=== PATIENT | female | born 1960 | race Caucasian/White ===

== ENCOUNTER 2019-12-19 09:26 | Inpatient (IN) | payer BC ==
[~2019-12-19] VITALS: Ht 162.6 cm; Wt 70.3 kg
[2019-12-19] VITALS (15 sets, daily range): BP systolic 110–124; BP diastolic 60–75
[~2019-12-19 09:26] MED LIST: magnesium PO
[2019-12-19] MEDS ORDERED: LR 1000ml 1,000 ML IVLG SCH (10:12)
[2019-12-19] MEDS ORDERED: DiphenhydrAMINE 50mg/ml Inj IVP PRN (10:15)
[2019-12-19] MEDS ORDERED: Atropine Sulfate 0.4mg/ml inj IVP PRN (10:15)
[2019-12-19] MEDS ORDERED: Meperidine 25mg/0.5ml Inj (FOR RIGORS ONLY) IV PRN (10:15)
[2019-12-19] MEDS ORDERED: LORazepam Inj 2mg/ml 1ml IV PRN (10:15)
[2019-12-19] MEDS ORDERED: Labetalol 5mg/ml 20ml vial IV PRN (10:15)
[2019-12-19] MEDS ORDERED: Tranexamic Acid 100 ML IVPB ONE (10:15)
[2019-12-19] MEDS ORDERED: fentaNYL 100 mcg/2 mL IV PRN (10:15)
[2019-12-19] MEDS ORDERED: Metoclopramide 10mg/2ml Inj IVP PRN (10:15)
[2019-12-19] MEDS ORDERED: Midazolam 2mg/2ml Inj IVP PRN (10:15)
[2019-12-19] MEDS ORDERED: EPINEPHrine 1mg/1ml Amp ONE (10:17)
[2019-12-19] MEDS ORDERED: Bupivacaine 0.5% Inj 30 ml vial INJ ONE (10:17)
[2019-12-19] MEDS ORDERED: cloNIDine 1000mcg/10ml inj ONE (10:17)
[2019-12-19] MEDS ORDERED: NeoSporin Gu Irrig 1ml Amp IRRIG ONE (10:34)
[2019-12-19] MEDS ORDERED: Bacitracin 50000 Units Vial ONE (10:34)
--- NOTE | 2019-12-19 10:49 | Anethesia Preoperative Eval ---
Anesthesia Pre-op PMH/ROS General Date of Evaluation: Dec 19, 2019 Time of Evaluation: 11:06 Anesthesiologist: Francisco Javier ASA Score: ASA 3 Mallampati Score Class I : Soft palate, uvula, fauces, pillars visible Class II: Soft palate, uvula, fauces visible Class III: Soft palate, base of uvula visible Class IV: Only hard plate visible Mallampati Classification: Class II Surgeon: Anton Diagnosis: L Knee Pain Surgical Procedure: L Knee Total Arthroplasty Anesthesia History: none Social History: alcohol use, drug use - Tolerant Family History: no anesthesia problems Allergies: Coded Allergies: MORPHINE (Verified Allergy, Severe, rash; severe nausea and vomiting, 12/18) NSAIDS (NON-STEROIDAL ANTI-INFLAMMA (Verified Allergy, Severe, anaphylactic reaction, 12/18/19) had taken alleve; motrin in the past PENICILLINS (Verified Allergy, Severe, anaphylactic reaction, 12/18/19) CODEINE (Verified Allergy, Intermediate, rash; vomiting, 12/18/19) Medications: see eMAR Patient NPO?: Yes NPO Date: Dec 18, 2019 NPO Time: 2244 Past Medical History Cardiovascular: Reports: HTN Pulmonary: Reports: asthma - Bronchitis Hematology/Immune: Reports: other - Uterine CA PSxH Narrative: SILVIA, Uterine CA, Cervical Fusion, Lumbar Laminectomy,L Knee Sx X3, SBO Sx Anesthesia Pre-op Phys. Exam Physician Exam Last Vital Signs Date Time Temp Pulse Resp B/P (MAP) Pulse Ox O2 Delivery O2 Flow Rate FiO2 12/19/19 10:34 Room Air 12/19/19 10:29 98.0 61 18 118/75 (89) 99 Constitutional: NAD Neurologic: CN 2-12 intact Cardiovascular: RRR Respiratory: CTA Gastrointestinal: S/NT/ND Airway Exam Mallampati Score: Class II MO: full ROM: limited Teeth: intact Anesthesia Pre-op A/P Risk Assessment & Plan Assessment: ASA 3 Plan: GA, SED, Spinal Status Change Before Surgery: No Pre-Antibiotics Dru Grams Ancef IV Given Within 1 Hr of Incision: Yes Time Given: 11:31 John Mcintyre MD Dec 19, 2019 10:49
[2019-12-19] MEDS ORDERED: NS Irrig 1000ml ONE (11:00)
[2019-12-19] MEDS ORDERED: Sterile Water Irrig 1000ml IRRIG ONE (11:00)
[2019-12-19] MEDS ORDERED: LR 1000ml ONE (11:00)
[2019-12-19] MEDS ORDERED: Dexamethasone 4mg/ml vial ONE (11:02)
[2019-12-19] MEDS ORDERED: Propofol 200mg/20ml IV ONE (11:02)
[2019-12-19] MEDS ORDERED: Lidocaine 1% MPF 10mg/ml 5ml ONE (11:02)
--- NOTE | 2019-12-19 11:12 | Pre-Procedure Note/Attestation ---
Pre-Procedure Note/Attestation Complete Prior to Procedure Planned Procedure: left Procedure Narrative: left knee respalcement Indications for Procedure Pre-Operative Diagnosis: left knee arthritis Attestation I attest that I discussed the nature of the procedure; its benefits; risks and complications; and alternatives (and the risks and benefits of such alternatives ), prior to the procedure, with the patient (or the patient's legal maintenance representative). I attest that, if there was a reasonable possibility of needing a blood transfusion, the patient (or the patient's legal maintenance representative) was given the [facility] standardized written summary, pursuant to the Robert Augusto Blood Safety Act ([place] Health and Safety Code # 1645, as amended). I attest that I re-evaluated the patient just prior to the surgery and that there has been no change in the patient's H&P, except as documented below: Papito Walton MD Dec 19, 2019 11:12
--- NOTE | 2019-12-19 11:13 | Brief Operative Note ---
Immediate Post Operative Note Operative Note Pre-op Diagnosis: left knee arthritis Procedure: left knee repalcmenet Post-op Diagnosis: left knee arthritis Findings: consistent w/pre-op dx studies Surgeon: darren Anesthesia: general Specimen: yes Complications: none Condition: stable Fluids: yes Estimated Blood Loss: minimal Drains: none Implant(s) used?: Yes Papito Walton MD Dec 19, 2019 11:13
[2019-12-19] MEDS ORDERED: NS Irrig 2000ml IRRIG ONE ×2 (11:48→12:08)
--- NOTE | 2019-12-19 11:58 | Immediate Post-Op Evaluation ---
Immediate Post-Op Evalulation Immediate Post-Op Evalulation Procedure: L Knee Total Arthroplasty Date of Evaluation: Dec 19, 2019 Time of Evaluation: 13:44 IV Fluids: 800 LR Blood Products: 0 Estimated Blood Loss: 50 Urinary Output: 400 Blood Pressure Systolic: 112 Blood Pressure Diastolic: 72 Pulse Rate: 100 Respiratory Rate: 16 O2 Sat by Pulse Oximetry: 100 Temperature (Fahrenheit): 98.3 Pain Score (1-10): 1 Nausea: No Vomiting: No Patient Status: awake, reacts, patent, none Hydration Status: adequate Dru Grams Ancef IV Given Within 1 Hr of Incision: Yes Time Given: 11:31 John Mcintyre MD Dec 19, 2019 11:58
[2019-12-19] MEDS ORDERED: ePHEDrine 50mg/ml Inj ONE (12:02)
[2019-12-19] MEDS ORDERED: oxyCODONE 5mg IR tab ORAL PRN (15:00)
--- NOTE | 2019-12-19 15:00 | NUR ---
NURSE NOTES: Patient arrived to unit at 1450 via bed. Awake and oriented, no acute distress noted, reporting no pain at this time. Patient still not able to move or feel sensation from waist down, patient had spinal block during surgery. Surgical site dressing clean and dry, ice pack in place, knee immobilizer in place. IV intact, patent. Patient has no belongings, patient's at bedside updated on plan of care. Side rails upx3, bed low and locked, call light within reach.
[2019-12-19] MEDS ORDERED: MULTIVITAMINS1 EAC8 ORAL (15:11)
--- NOTE | 2019-12-19 15:25 | NUR ---
P.T Note: Order for CPM set up received for 0-60 deg. POD#0 per protocol. Sensory-motor checked on BLE and currently decreased secondary to spinal spinal block still in effect. Educated pt and re: use of CPM and its operation prior to placing the CPM. Pt and verbalized understanding. Pt tolerating 0-60 deg well. CPM to be removed OOB after 4-6 hrs of use. CPM endorsed to nursing at the end of P.T shift.
[2019-12-19] MEDS: D5 1/2NS w/KCl 20mEq 1,000 ML IV SCH (16:10)
[2019-12-19] MEDS: Clindamycin 600mg 50 ML IV SCH ×2 (17:14→22:14)
[2019-12-19] MEDS: Hydromorphone 0.5mg/0.5ml inj IVP PRN ×3 (17:27→22:14)
--- NOTE | 2019-12-19 19:05 | NUR ---
NURSE NOTES: Patient unable to tolerate CPM due to pain despite pain medication administration. CPM removed and towel roll placed behind heel for neutral position, ice packs placed and patient reports she is feeling more comfortable now.
--- NOTE | 2019-12-19 19:55 | NUR ---
HAND-OFF: Report given to Riya RIZO. Endorsed dilaudid reassessment.
--- NOTE | 2019-12-19 19:56 | NUR ---
NURSE NOTES: Received report & pt from SALLIE Jarvis. Pt lying in bed, a&ox4, in room air, family members at bedside. No s/s of acute distress & c/o 5/10 pain. Per pt, Caitlinid is working. Cates cath intact & draining yellow urine to gravity. Surgical drsg C/D/I. Pt's left foot elevated with rolled towel. IV site intact with IVF running as ordered. Bed in lowest position, call light within reach. Plan of care discussed. Will continue to monitor.
--- NOTE | 2019-12-19 21:13 | General Progress Note ---
Assessment/Plan Status Narrative S/P LEFT TOTAL KNEE ARTHROPLASTY HISTORY OF PREVIOUS DIVERTICULITIS AND COLON RESECTION PERIOPERATIVE ANTIBIOTIC PROPHYLAXIS WITH LOVENOX PT OT CPM START HER ON BOWEL REGIMEN INCENTIVE SPIROMETRY FOLLOW CBC Subjective Date patient seen: Dec 19, 2019 Time patient seen: 21:08 Allergies: Coded Allergies: MORPHINE (Verified Allergy, Severe, rash; severe nausea and vomiting, 12/18) NSAIDS (NON-STEROIDAL ANTI-INFLAMMA (Verified Allergy, Severe, anaphylactic reaction, 12/18/19) had taken alleve; motrin in the past PENICILLINS (Verified Allergy, Severe, anaphylactic reaction, 12/18/19) CODEINE (Verified Allergy, Intermediate, rash; vomiting, 12/18/19) Subjective s/p left total knee arthorplasty has been having some pain no feverno chills has a slight bleed inthe left knee wrappin able to dorsiflex the ankle bilaterally no nausea no vomiting Objective Last 24 Hour Vital Signs Date Time Temp Pulse Resp B/P (MAP) Pulse Ox O2 Delivery O2 Flow Rate FiO2 12/19/19 17:50 98.2 77 16 110/60 (77) 95 12/19/19 16:50 97.1 82 16 112/63 (79) 96 12/19/19 15:50 97.0 82 16 112/62 (79) 97 12/19/19 15:20 97.5 75 16 113/63 (80) 98 12/19/19 14:50 97.5 76 16 115/64 (81) 97 12/19/19 14:45 97.3 84 18 112/65 100 Nasal Cannula 3 12/19/19 14:30 75 16 116/63 100 Nasal Cannula 3 12/19/19 14:15 75 12 118/65 100 Nasal Cannula 3 12/19/19 14:00 81 13 121/67 100 Nasal Cannula 3 12/19/19 13:50 89 14 124/71 100 Nasal Cannula 3 12/19/19 13:40 86 16 120/67 100 Simple Mask 6 12/19/19 13:35 90 12 119/68 100 Simple Mask 6 12/19/19 13:33 97.4 102 17 112/72 100 Simple Mask 6 12/19/19 13:29 100 16 100 12/19/19 10:34 Room Air 12/19/19 10:29 98.0 61 18 118/75 (89) 99 NAD NO JVD CTA S1,S2,RRR SOFT WELL HEALED VERTICAL SCAR HYPERTROPHIC NO C/C/GILBERTO NO DRAIN Height (Feet): 5 Height (Inches): 4.00 Weight (Pounds): 155 Neck: paraspinous muscle tender David Gonzalez MD Dec 19, 2019 21:13
[2019-12-19] MEDS ORDERED: Milk of Magnesia 30ml Ud ORAL PRN (21:15)
--- NOTE | 2019-12-19 22:00 | NUR ---
NURSE NOTES: Spoke with Dr. Bender on the phone & gave updates re: pt of her pain. New orders received. Scopolamine patch x 1 NOW, increase Roxicodone from 5mg to 10MG PO Q3H PRN for mild pain. Order noted & carried out.
[2019-12-19] MEDS ORDERED: TransDerm Scop 1.5mg/72HR Patch TDERMAL ONE (22:15)
--- NOTE | 2019-12-19 22:20 | NUR ---
NURSE NOTES: Scopolamine patch applied behind left ear. Dilaudid 0.5mg IVP & Zofran 4mg IVP given. Will reassess pain. Will give oxycodone PO if pt continues to have pain after 60 minutes & pt agreed with plan of care. All needs met at this time. Will continue to monitor. Addendum: 12/19/19 at 2236 by Riya Olivo RN CORRECTION: Scopolamine patch applied behind right ear.
[2019-12-20] VITALS: BP 117/65
[2019-12-20] MEDS: oxyCODONE 5mg IR tab ORAL PRN ×3 (00:01→14:57)
[2019-12-20] MEDS: Hydromorphone 0.5mg/0.5ml inj IVP PRN ×5 (02:42→17:55)
[2019-12-20 04:00] VITALS: BP 113/61
[2019-12-20] MEDS: D5 1/2NS w/KCl 20mEq 1,000 ML IV SCH ×3 (05:16→20:00)
[2019-12-20] MEDS: Clindamycin 600mg 50 ML IV SCH ×2 (05:16→11:53)
--- NOTE | 2019-12-20 06:00 | NUR ---
NURSE NOTES: Pt's whole dressing was saturated with blood & on bed. Per pt, she felt pulsating about 2 hours ago. Removed dressing to assess for bleeding. Blood was coming out from the 2nd bottom javan of surgical site. Applied pressure & dressed with a new dressing with charge nurse. New ice pack on. Informed Dr. Grover of the above concern & Dr. Bender is also aware.
[2019-12-20] MEDS ORDERED: PCA HYDROmorphone 1mg/ml 30 ML IV PRN ×2 (07:30)
--- NOTE | 2019-12-20 07:33 | NUR ---
NURSE NOTES: Dr. Grover responded re: bleeding, "No we didn't use a tourniquet in surgery so normal drainage".
--- NOTE | 2019-12-20 07:40 | NUR ---
HAND-OFF: Report given to SALLIE Britt. Rounds done.
[2019-12-20 07:41] LABS: BASOPHILS % (AUTO) 0.5 % (0.0-2.0); LYMPHOCYTES % (AUTO) 13.2 % (20.0-45.0); MEAN CORPUSCULAR VOLUME 93 FL (80-99); MONOCYTES % (AUTO) 8.8 % (1.0-10.0); NEUTROPHILS % (AUTO) 77.5 % (45.0-75.0); PLATELET COUNT 196 K/UL (150-450); RED BLOOD COUNT 3.56 M/UL (4.20-5.40); RED CELL DISTRIBUTION WIDTH 11.5 % (11.6-14.8); WHITE BLOOD COUNT 13.2 K/UL (4.8-10.8)
[2019-12-20] MEDS ORDERED: Chloraseptic Spray 20mL Bottle ORAL PRN (07:45)
[2019-12-20] MEDS ORDERED: DiphenhydrAMINE 25mg Tab ORAL PRN (07:45)
--- NOTE | 2019-12-20 07:50 | NUR ---
NURSE NOTES: Report received from Riya RN, rounds made. Patient resting in semi-fowlers position in bed. No distress on RA. Left knee pain 7/10, will medicate as ordered. SCD to RLE on. IVF (D5 1/2 + 20 KCL at 75 ml/hr) infusing to LH, site asymptomatic. LLE dressing CDI. Neuro checks done, intact, skin cool, wiggles, pulses palpable, no NT, pedal pushes 5/5. FC draining y/cl urine to gravity, will DC after ambulates with PT. Encouraged IS, demonstrates correctly. Denies SOB, NV. Call light in reach, bed in lowest position, will continue to monitor.
[2019-12-20 08:00] VITALS: BP 98/58
[2019-12-20 08:00] LABS: ANION GAP 14 mmol/L (5-15); BLOOD UREA NITROGEN 11 mg/dL (7-18); CALCIUM 8.4 MG/DL (8.5-10.1); CARBON DIOXIDE 24 MMOL/L (21-32); CHLORIDE 103 MMOL/L (98-107); CREATININE 0.7 MG/DL (0.55-1.30); POTASSIUM 4.2 MMOL/L (3.5-5.1); SODIUM 141 MMOL/L (136-145)
[2019-12-20 08:21] LABS: INR 0.9 (0.9-1.1)
--- NOTE | 2019-12-20 08:25 | 48 Hour Post Anesthesia Eval ---
Post Anesthesia Evaluation Procedure: L Knee Total Arthroplasty Date of Evaluation: Dec 20, 2019 Time of Evaluation: 08:20 Blood Pressure Systolic: 116 0: 72 Pulse Rate: 74 Respiratory Rate: 20 Temperature (Fahrenheit): 97.6 O2 Sat by Pulse Oximetry: 98 Airway: patent Nausea: No Vomiting: No Pain Intensity: 3 Hydration Status: adequate Cardiopulmonary Status: stable Mental Status/LOC: patient returned to baseline Follow-up Care/Observations: Patient comfortable in bed, it was an episode of bleeding from surgical wound, dressing was saturated according to nursing staff, dressing was changed at present time clean and dry. Post-Anesthesia Complications: none Follow-up care needed: N/A Nas Loja MD Dec 20, 2019 08:25
[2019-12-20] MEDS ORDERED: oxyCODONE 5mg IR tab ORAL ONE (08:30)
[2019-12-20] MEDS ORDERED: oxyCODONE 5mg IR tab ORAL SCH (08:30)
[2019-12-20] MEDS ORDERED: Docusate 100mg cap ORAL SCH (09:00)
[2019-12-20] MEDS ORDERED: Enoxaparin 40mg Inj SUBQ SCH ×2 (09:00→12:30)
--- NOTE | 2019-12-20 09:24 | General Progress Note ---
Assessment/Plan Status Narrative S/P LEFT TOTAL KNEE ARTHROPLASTY PERIOPERATIVE BLOOD LOSS POSTOP PAIN PERIOPERATIVE ANTIBIOTC PROPHYALXIS PAINCONTROL PT OT DVT PROPHYALXIS CPM HAD A SLIGHT OOZING AT THE DRESSING SITE CBC IS OK ICE PACK TO BE USED Subjective Date patient seen: Dec 20, 2019 Time patient seen: 09:21 Allergies: Coded Allergies: MORPHINE (Verified Allergy, Severe, rash; severe nausea and vomiting, 12/18) NSAIDS (NON-STEROIDAL ANTI-INFLAMMA (Verified Allergy, Severe, anaphylactic reaction, 12/18/19) had taken alleve; motrin in the past PENICILLINS (Verified Allergy, Severe, anaphylactic reaction, 12/18/19) CODEINE (Verified Allergy, Intermediate, rash; vomiting, 12/18/19) Subjective has been having pain no fever no chills no chest pain no headache Objective Last 24 Hour Vital Signs Date Time Temp Pulse Resp B/P (MAP) Pulse Ox O2 Delivery O2 Flow Rate FiO2 12/20/19 08:25 74 20 98 12/20/19 05:46 98.0 12/20/19 04:00 98.0 78 18 113/61 (78) 96 12/20/19 00:00 98.3 87 18 117/65 (82) 98 12/19/19 21:00 Room Air 12/19/19 20:00 97.5 86 20 121/69 (86) 96 12/19/19 17:50 98.2 77 16 110/60 (77) 95 12/19/19 16:50 97.1 82 16 112/63 (79) 96 12/19/19 15:50 97.0 82 16 112/62 (79) 97 12/19/19 15:20 97.5 75 16 113/63 (80) 98 12/19/19 14:50 97.5 76 16 115/64 (81) 97 12/19/19 14:45 97.3 84 18 112/65 100 Nasal Cannula 3 12/19/19 14:30 75 16 116/63 100 Nasal Cannula 3 12/19/19 14:15 75 12 118/65 100 Nasal Cannula 3 12/19/19 14:00 81 13 121/67 100 Nasal Cannula 3 12/19/19 13:50 89 14 124/71 100 Nasal Cannula 3 12/19/19 13:40 86 16 120/67 100 Simple Mask 6 12/19/19 13:35 90 12 119/68 100 Simple Mask 6 12/19/19 13:33 97.4 102 17 112/72 100 Simple Mask 6 12/19/19 13:29 100 16 100 12/19/19 10:34 Room Air 12/19/19 10:29 98.0 61 18 118/75 (89) 99 Intake and Output 12/19/19 12/20/19 19:00 07:00 Intake Total 1300 ml 1275 ml Output Total 450 ml 350 ml Balance 850 ml 925 ml Intake Oral 300 ml IV Total 1300 ml 975 ml Output Urine Total 400 ml 350 ml Estimated Blood Loss 50 ml # Voids 1 Laboratory Tests 12/20/19 07:20: White Blood Count 13.2H, Red Blood Count 3.56L, Hemoglobin 11.0L, Hematocrit 33.0L, Mean Corpuscular Volume 93, Mean Corpuscular Hemoglobin 31.0, Mean Corpuscular Hemoglobin Concent 33.5, Red Cell Distribution Width 11.5L, Platelet Count 196, Mean Platelet Volume 8.1, Neutrophils (%) (Auto) 77.5H, Lymphocytes (%) (Auto) 13.2L, Monocytes (%) (Auto) 8.8, Eosinophils (%) (Auto) 0.0, Basophils (%) (Auto) 0.5, Prothrombin Time 10.0, Prothromb Time International Ratio 0.9, Sodium Level 141, Potassium Level 4.2, Chloride Level 103, Carbon Dioxide Level 24, Anion Gap 14, Blood Urea Nitrogen 11, Creatinine 0.7, Estimat Glomerular Filtration Rate > 60, Glucose Level 114H, Calcium Level 8.4L Height (Feet): 5 Height (Inches): 4.00 Weight (Pounds): 155 General Appearance: WD/WN Neck: non-tender Cardiovascular: normal peripheral pulses, normal rate, regular rhythm, no JVD Respiratory/Chest: lungs clear Abdomen: soft Extremities: other - left leg has dressing Carlos, S. MD Dec 20, 2019 09:24
[2019-12-20] MEDS ORDERED: PCA Education Pamphlet MISC ONE (09:45)
[2019-12-20] MEDS ORDERED: Rate Change PCA 1 Each MISC PRN (09:45)
[2019-12-20] MEDS: Docusate 100mg cap ORAL SCH ×2 (10:09→17:55)
--- NOTE | 2019-12-20 11:26 | NUR ---
P.T Note: late entry 0900 Spoke with attending nursing from evening shift and RN Lorenza day shift. Evening shift nurse , reported profuse bleeding on the surgical wound where dressing was reinforced. DR. Walton aware. Pt cleared for P.T evaluation and mobilization. P.T evaluation completed and and tx initiated. 100% sensory motor return to BLE's. Pt reported 8-10 L knee aggravated at rest, movement initiation and WB however agreeable to participate in P.T evaluation. Pt currently require MIN A X 1 and extended time to complete supine to/from sitting and maneuvering LLE in a out of bed, MIN A x 1 for sit to/from stand, bed to/from transitions. Pt able to ambulate and tolerate distance of 20 ft using the FWW , MIN A X 1. Left pt in chair recliner sitting comfortably with present and other necessities within reach. No significant bleeding from the surgical site. Pt will be seen BID, QD for Thera ex, ADL/functional mobility training and progressive gait training with FWW until DE. Recommend home P.T, FWW and 3 in 1 commode at DE.
[2019-12-20 12:00] VITALS: BP 142/72
--- NOTE | 2019-12-20 13:52 | NUR ---
CASE MANAGEMENT:INITIAL REVIEW 59 YR OLD FEMALE FROM HOME FOR SCHEDULED SURGERY SI;LEFT TOTAL KNEE REPLACEMENT 98.0 102 12 112/72 100% 6L SIMPLE MASK NO LABS AVAILABLE IS;IVF LR @ 10 ML/HR DEMORAL IV LABETALOL IV HYDRALAZINE IV ZOFRAN IV REGLAN IV VERSED IV ATIVAL IV ELISSA STATUS DCP;FROM HOME
--- NOTE | 2019-12-20 14:53 | NUR ---
*-* INSURANCE *-* ALL CLINICALS AND REVIEWS HAVE BEEN FAXED TO: MAIK[employer] F: [phone] Addendum: 12/21/19 at 1421 by WIL CALLEJAS JAH:NONA REF# [id number] P: [phone] X. [phone] F: [phone]
[2019-12-20 16:00] VITALS: BP 124/64
--- NOTE | 2019-12-20 16:30 | NUR ---
NURSE NOTES: Patient up with PT and RN, transfers well, good bed mobility, maintains proper body mechanics with left knee precautions. Ambulated in halls shortly, mostly ambulated in room (to bathroom), tolerated fair. LLE dressing remains CDI, no bleeding. Lovenox given as ordered. On CPM 0-40 for 30 mins, then patient reduced to 30 degrees, for another 1.5 hours. Neuros remain intact.
--- NOTE | 2019-12-20 18:30 | Consultation ---
DATE OF CONSULTATION: 12/20/2019 CONSULTING PHYSICIAN: David Bender M.D. REFERRING PHYSICIAN: Papito Walton M.D. REASON FOR CONSULTATION: Acute pain consult. HISTORY OF PRESENT ILLNESS: Dear Dr. Papito Walton, Thank you kindly for consulting me to evaluate and render an opinion as to how to proceed in the management of the patient's acute postoperative left knee pain after left total knee arthroplasty. The patient is a 59-year-old woman, who I saw at the bedside with her and the nurse RN, Riya and the charge nurse RN, Frank. I discussed the case with yourself, Dr. Walton. I spent extended time at the bedside with the patient and the nursing team to help optimize the patient's pain complaints. She complained of severe pain after her left knee surgery. I spent over 75 minutes in consultation with an additional 30 minutes in medical record review. PAST MEDICAL HISTORY: 1. Acute postoperative left knee pain, status post left total knee arthroplasty by Dr. Papito Walton in December 2019. 2. History of multiple bowel obstruction, status post surgery. REVIEW OF SYSTEMS: Per Dr. David Gonzalez. ALLERGIES: Multiple including codeine, morphine, NSAIDs, penicillin. PAST SURGICAL HISTORY: Multiple small bowel resections, knee surgery, hysterectomy, breast augmentation, cervical spine fusion surgery, abdominoplasty. SOCIAL HISTORY: The patient accompanied at the bedside by her . Her daughter is an actress and lives in [place]. The patient admits using CBD oil topically for the past four months. She also does use edible marijuana a few times per week at night time to help with sleep. MEDICATIONS: At home, multivitamins. FAMILY HISTORY: Coronary artery disease. PHYSICAL EXAMINATION: VITAL SIGNS: Age 59, height 5 feet 4 inches, weight 163 pounds, body mass index 28. Pain level 9/10 on the visual analog pain scale. Afebrile, pulse 78, respirations 18, blood pressure 113/61, oxygen saturation 96% on room air. HEENT: Normocephalic and atraumatic. CHEST: Clear to auscultation. HEART: Regular rate and rhythm. NEUROLOGIC: Alert and oriented x3. EXTREMITIES: Left knee is having drainage from the caudal incision site. The dressing has been changed and the surgeon, Dr. Papito Walton, has been aware. Moving all extremities x4. Moving all toes x10. Significant pain with range of motion. ABDOMEN: Multiple well-healed abdominal scars. Positive bowel sounds. BREASTS/GENITOURINARY: Deferred to Dr. David Gonzalez. DIAGNOSTIC TESTING: From this morning is pending. Preoperative laboratories from November 15, 2019 shows white count 6, hematocrit 42, platelets 274. INR 0.9. PTT 30. Sodium 140, potassium 4.3, chloride 106, bicarb 26, glucose 95, BUN 13, creatinine 0.8, calcium 9.3. Total protein 6.9, albumin 4.4. AST 34, ALT 44, total bilirubin 0.7, hemoglobin A1c 5.5. IMPRESSION: 1. Acute postoperative left knee pain, status post left total knee arthroplasty by Dr. Papito Walton in December 2019. 2. History of multiple bowel obstruction, status post surgery. TREATMENT RECOMMENDATIONS: This patient has multiple drug allergies and she cannot tolerate morphine. So, I trialed her on Dilaudid IV at a 0.5 mg dose. I made this dosing available every two hours. The patient seems to be tolerating this medication at the current dosing. I will continue the dosing at this 0.5 mg dose for now, we will consider increasing to 1 mg if necessary, but I like the 0.5 mg dose at this point. She has been trialed on oxycodone instant release. I started her on 5 mg. This was well tolerated despite her multiple drug allergies when taken with food. I doubled the dose to 10 mg. The patient is having a good response to oxycodone, but still states that her pain is significant. The patient was stating that she has been using CBD oil for the past several months and occasionally uses nightly marijuana a couple of times per week to help for sleep and anxiety. I suggested at bedtime dose of her Marinol here in the hospital. Since she has tolerated Dilaudid despite her allergies, I will start her on a Dilaudid OIL TANK CAR CLEANER. I spoke with the hospital pharmacist, Orly and we will start with 0.2 mg demand dose at 10-minute lockout and a 3 mg 4-hour limit. Additionally, I will continue the p.r.n. IV Dilaudid at this time. I provided the a prescription for Percocet 10/325 for outpatient usage and encouraged him to fill the prescription when his time is available. The patient know he has chronic constipation with history of small bowel obstruction. I recommend the patient resume her preoperative home laxative regimen, which includes [id number] [employer] [address] magnesium tablets. The patient states that she uses three tablets of 400 mg each. I suggested that the patient resume this dosing at bedtime once she is cleared to ambulate out of bed by the surgeon. The patient was having some postoperative surgical site bleeding. Dr. Walton will determine the best treatment. The patient was using a CPM unit already, and we will see with ambulation. Dr. Walton, has ordered for the chemical anticoagulation of Lovenox 40 mg daily. We will check with Dr. Walton before dosing the patient. The patient does list tobacco usage. Nicotine patch may be considered if such myself as an anxiolytic. Because the patient has an allergy to NSAIDs, we will avoid Toradol for now. David Bender M.D. DR: GLENYS JOB#: [id number] CC:
[2019-12-20] MEDS ORDERED: PCA shift volume MISC SCH (19:00)
--- NOTE | 2019-12-20 19:19 | NUR ---
HAND-OFF: Report given to Gfity RIZO, rounds made. Patient resting in bed, stable condition.
--- NOTE | 2019-12-20 19:20 | NUR ---
NURSE NOTES: Received report from SALLIE Britt. Patient resting in bed, no distress noted. Visitor at bedside. c/o room too warm, engineering has been already notified during this afternoon. Will obtain fan, offered to move to another room as well. Patient would like to try fan first for now. States would like snacks. Bed in low position, locked, side rails upx2, call light and FISCAL ECONOMIST pump button within reach. Patient is alert, oriented. Rates pain 6/10. Encouraged and reviewed use of FISCAL ECONOMIST pump for pain control. Patient verbalizes understanding. Will continue to monitor.
[2019-12-20 20:00] VITALS: BP_SYST 112; BP_DIAS 54; BP_DIAS 56
--- NOTE | 2019-12-20 20:00 | NUR ---
NURSE NOTES: Provided fan for room and snacks as requested. Will continue to monitor.
[2019-12-20] MEDS ORDERED: Zolpidem 5mg tab ORAL PRN (20:30)
--- NOTE | 2019-12-20 20:30 | NUR ---
NURSE NOTES: Patient would like Ambien to sleep, Dr Gonzalez was called and order obtained. Also Dr Gonzalez requests continuous O2Sat, RT was called by charge nurse to request.
[2019-12-20] MEDS: Dronabinol 2.5mg Cap ORAL SCH (20:38)
--- NOTE | 2019-12-20 20:51 | NUR ---
NURSE NOTES: RT here to place on continuous O2Sat, on RA at 98%. End CO2 37. Will continue to monitor.
--- NOTE | 2019-12-20 21:37 | NUR ---
NURSE NOTES: Patient up to bathroom using walker, with little assistance. Doing very well. No dizziness.
[2019-12-21] VITALS: BP_SYST 112; BP_SYST 120; BP_DIAS 54; BP_DIAS 64
--- NOTE | 2019-12-21 01:37 | NUR ---
NURSE NOTES: Assisted OOB to bathroom 3 times this evening. Patient using walker very well. Voiding without difficulty, quantity sufficient. Tolerating activity well, reapplied icepacks to left knee after patient is back in bed. Call light and CAGE CLERK button within reach, will continue to monitor.
--- NOTE | 2019-12-21 03:30 | NUR ---
NURSE NOTES: Patient states she feels bleeding from L knee wound. Dressing was dry on outside but upon undressing wound, noticed moderate amount of bleeding in lower third of dressing, no active bleeding at this time. Dressing changed. Icepacks reapplied on L knee for comfort. Also c/o discomfort at IV site, IV is patent. IV starts attempted x2 with help of Vein finder without success by charge nurse. Will continue to monitor.
[2019-12-21 04:00] VITALS: BP 132/60
[2019-12-21] MEDS: oxyCODONE 5mg IR tab ORAL PRN ×3 (05:50→17:06)
[2019-12-21] MEDS ORDERED: Milk of Magnesia 30ml Ud ORAL ONE (06:43)
--- NOTE | 2019-12-21 07:02 | NUR ---
NURSE NOTES: Report received from Gifty RIZO, rounds made. Patient resting in semi-fowlers position in bed. Alert, oriented x4, calm. No distress on RA. LH IV discontinued by Gifty RIZO, no active bleeding. SCHOOL BUSINESS MANAGER discontinued per Dr. Bender orders, patient updated with new orders, verbalized understanding. LLE dressing CDI. Neuros intact, left thigh/yun warm, pedal cool, wiggles, pulses palpable. Encouraged IS, demonstrates correctly. Call light in reach, bed in lowest position, will continue to monitor. Addendum: 12/21/19 at 2021 by Lorenza Gao RN Left knee pain 02/07, will medicate as ordered, see eMAR.
--- NOTE | 2019-12-21 07:09 | NUR ---
NURSE NOTES: IV DC'd per Dr Bender's order. VISITOR USE ASSISTANT DC'd with onctawanda Britt RN.
--- NOTE | 2019-12-21 07:19 | NUR ---
HAND-OFF: Report given to SALLIE Britt. Advised of new orders recently placed by Dr Bender.
--- NOTE | 2019-12-21 07:45 | Progress Note ---
DATE: 12/21/2019 ACUTE PAIN MANAGEMENT PHYSICIAN PROGRESS NOTE. MEDICATIONS: Medication administration record reviewed. Medications include Colace, Pepcid, Lovenox, Marinol, Dilaudid GROCERY CLERK CHECKING, IV fluids, Tylenol, Mylanta, Chloraseptic spray, Benadryl, milk of magnesia, oxycodone, Dilaudid, Zofran, milk of magnesia, Phenergan. LABORATORY STUDIES: From yesterday shows white count 13, hematocrit 33, platelets 200. Sodium 141, potassium 4.2, chloride 103, bicarb 24, BUN 11, creatinine 0.7, glucose 114, calcium 8.4. INR 0.9. PHYSICAL EXAMINATION: VITAL SIGNS: Within normal limits. Afebrile, pulse 89, respirations 16, blood pressure 132/60, oxygen saturation 97% on room air. I saw the patient at bedside. I discussed the case with the surgeon, Dr. Walton in detail. The hospitalist, Internal Medicine, Dr. David Gonzalez also followed the patient closely. Oozing from her surgical site has decreased. The nurses continues to change the dressing as ad-holly. The patient ambulated well with physical therapy and has been moving in and out of bed to the restroom frequently. The patient states that she is able to tolerate her IV fluids. She is having difficulty with the peripheral IV site. We used the Dilaudid GROCERY CLERK CHECKING overnight with good efficacy but in attempts to discontinue further intravenous irritation, the patient has agreed to trial off of the GROCERY CLERK CHECKING at this time. I will double the Dilaudid dosing to 1 mg which will now be used via subcutaneous route since the patient will not have IV access. Scopolamine patch remained in place for nausea prophylaxis. The patient still has been using intermittent doses of IV Zofran as a rescue antiemetic. I will switch Zofran to the intramuscular and oral routes as well as adding p.r.n. dose of intramuscular Phenergan for any refractory nausea symptoms. The patient promises to adequately drink oral intake. The patient is tolerating the oral oxycodone. She does have some mild nausea when she takes it on an empty stomach. I did encourage the patient to time the dosing of her oxycodone with large meals to reduce nausea symptoms. The already filled the prescription for Percocet for outpatient usage. Dr. Wlaton permitted the patient to resume anticoagulation. She started with Lovenox yesterday at which will continue daily per Dr. Walton at this time. The patient states that milk of magnesia has been effective. She was unable to use her own [id number] magnesium pills since she did not have the correct label to clear authorization with the hospital pharmacy. The patient has agreed to use milk of magnesia, which we will begin dosing this morning. CBC from yesterday showed stable hematocrit. The patient denies any shortness of breath or chest pain. The patient slept well with her nightly dose of Marinol which I will continue at bedtime. David Bender M.D. DR: Lindy JOB#: [id number] CC:
[2019-12-21 07:50] LABS: BASOPHILS % (AUTO) 0.7 % (0.0-2.0); EOSINOPHILS % (AUTO) 0.3 % (0.0-3.0); HEMATOCRIT 28.9 % (37.0-47.0); LYMPHOCYTES % (AUTO) 15.5 % (20.0-45.0); MEAN CORPUSCULAR VOLUME 92 FL (80-99); MONOCYTES % (AUTO) 10.4 % (1.0-10.0); NEUTROPHILS % (AUTO) 73.1 % (45.0-75.0); PLATELET COUNT 164 K/UL (150-450); RED BLOOD COUNT 3.14 M/UL (4.20-5.40); RED CELL DISTRIBUTION WIDTH 11.4 % (11.6-14.8); WHITE BLOOD COUNT 9.9 K/UL (4.8-10.8)
[2019-12-21 07:56] LABS: INR 0.9 (0.9-1.1)
[2019-12-21 08:00] VITALS: BP 127/71
--- NOTE | 2019-12-21 08:56 | General Progress Note ---
Assessment/Plan Status Narrative s/p tkr [perioperative expected blood loss mild edema Assessment/Plan: PT Ot paincontrol DVT prophyalxis venoud douplex both leg Subjective Date patient seen: Dec 21, 2019 Time patient seen: 08:55 Allergies: Coded Allergies: MORPHINE (Verified Allergy, Severe, rash; severe nausea and vomiting, 12/18) NSAIDS (NON-STEROIDAL ANTI-INFLAMMA (Verified Allergy, Severe, anaphylactic reaction, 12/18/19) had taken alleve; motrin in the past PENICILLINS (Verified Allergy, Severe, anaphylactic reaction, 12/18/19) CODEINE (Verified Allergy, Intermediate, rash; vomiting, 12/18/19) Subjective s/p TKR doing well off the iv DECK LID FITTER no fever no chills no BM yet no nausea Objective Last 24 Hour Vital Signs Date Time Temp Pulse Resp B/P (MAP) Pulse Ox O2 Delivery O2 Flow Rate FiO2 12/21/19 04:00 89 16 97 12/21/19 04:00 98.7 89 16 132/60 (84) 97 12/21/19 00:00 78 18 98 12/21/19 00:00 98.1 78 18 112/54 (73) 98 12/20/19 23:03 17 98 12/20/19 22:00 18 97 12/20/19 21:00 Room Air 12/20/19 20:55 17 98 12/20/19 20:53 98 Room Air 21 12/20/19 20:00 68 18 97 12/20/19 20:00 98.5 68 18 112/54 (73) 97 12/20/19 16:00 98.4 72 18 124/64 (84) 95 12/20/19 16:00 72 18 95 12/20/19 15:22 98 Room Air 21 12/20/19 12:00 97.7 76 19 142/72 (95) 99 12/20/19 12:00 76 19 99 12/20/19 10:35 Room Air 12/20/19 09:00 Room Air Intake and Output 12/20/19 12/21/19 19:00 07:00 Intake Total 2425 ml 1425 ml Output Total 1420 ml 1350 ml Balance 1005 ml 75 ml Intake Oral 750 ml IV Total 825 ml 675 ml Other 1600 ml Output Urine Total 1400 ml 1350 ml Emesis 20 ml # Voids 3 7 Laboratory Tests 12/21/19 07:30: White Blood Count 9.9, Red Blood Count 3.14L, Hemoglobin 10.0L, Hematocrit 28.9L , Mean Corpuscular Volume 92, Mean Corpuscular Hemoglobin 31.8H, Mean Corpuscular Hemoglobin Concent 34.6, Red Cell Distribution Width 11.4L, Platelet Count 164, Mean Platelet Volume 8.1, Neutrophils (%) (Auto) 73.1, Lymphocytes (%) (Auto) 15.5L, Monocytes (%) (Auto) 10.4H, Eosinophils (%) (Auto ) 0.3, Basophils (%) (Auto) 0.7, Prothrombin Time 10.0, Prothromb Time International Ratio 0.9 Height (Feet): 5 Height (Inches): 4.00 Weight (Pounds): 155 General Appearance: WD/WN Neck: supple Cardiovascular: normal rate, regular rhythm, no JVD Respiratory/Chest: lungs clear Abdomen: soft Extremities: other - left leg some edema David Gonzalez MD Dec 21, 2019 08:56
[2019-12-21] MEDS: Enoxaparin 40mg Inj SUBQ SCH (09:41)
[2019-12-21] MEDS: Docusate 100mg cap ORAL SCH ×2 (09:42→17:07)
[2019-12-21] MEDS: Hydromorphone 0.5mg/0.5ml inj SUBQ PRN ×3 (09:43→18:36)
--- NOTE | 2019-12-21 10:10 | NUR ---
NURSE NOTES: VD to BLE done at beside. Negative findings.
--- NOTE | 2019-12-21 10:45 | NUR ---
NURSE NOTES: Left knee dressing changed with Tam UMANA. [place] noted, intact, small area with bleeding, cleansed with saline, pat dry, applied petroleum xeroform, 4x4, ABD pad x1, kerlix, white vinny wrap x2. Will continue to monitor.
[2019-12-21 12:00] VITALS: BP 146/74
[2019-12-21] MEDS: Milk of Magnesia 30ml Ud ORAL PRN (12:16)
[2019-12-21 16:00] VITALS: BP 118/66
--- NOTE | 2019-12-21 16:01 | NUR ---
CASE MANAGEMENT:INITIAL REVIEW 12/21/19 SI;POD# 2 LEFT TOTAL KNEE REPLACEMENT 97.3 81 18 127/71 97% ON RA H/H 10.0/28.9 BG 114 CA+ 8.4 IS;MARINOL PO QHS LOVENOX SQ QD DILAUDID SQ Q3HR/PRN \: 3E MED SURG UNIT DCP: HOME WHEN STABLE PLAN: VENOUS DUPLEX
--- NOTE | 2019-12-21 16:05 | NUR ---
NURSE NOTES: No BM yet. Administered MOM as ordered, per patient request. Appetite fair, no NV. Encouraged hydration. Provided prune juice, tolerated x1. Will continue to monitor.
--- NOTE | 2019-12-21 16:06 | Diagnostic Imaging Report ---
Indication: Left leg edema and left leg pain, history of recent arthroplasty Technique: Grayscale and duplex images of the bilateral lower extremity veins Comparison: None Findings: Bilaterally, grayscale and duplex images demonstrate no evidence of intraluminal thrombus. Normal phasic Doppler waveforms, demonstrating normal augmentation response and no evidence of valvular insufficiency. Greater saphenous vein(s) and tibial veins are patent. Normal compressibility. Impression: Negative for evidence of lower extremity deep venous thrombosis bilaterally
--- NOTE | 2019-12-21 17:18 | General Progress Note ---
Progress Note Progress Note doing well NVI no DVT ambulating HGB stable Pain issue due to allergies defer to dr de souza continute therapy Papito Walton MD Dec 21, 2019 17:18
--- NOTE | 2019-12-21 18:36 | Diagnostic Imaging Report ---
EXAM: XR Left Knee, 3 Views CLINICAL HISTORY: POST-OP TECHNIQUE: Three views of the left knee. COMPARISON: No relevant prior studies available. FINDINGS: Bones/joints: Left total knee arthroplasty. Orthopedic hardware appears intact and there is near-anatomic alignment. No acute fracture. Soft tissues: Anterior soft tissue edema, trace gas, and skin javan. IMPRESSION: Left total knee arthroplasty near-anatomic alignment.
--- NOTE | 2019-12-21 19:17 | NUR ---
NURSE NOTES: Received report from SALLIE Britt. Pt is awake, lying semi-corral's; comfortably resting. No signs of acute distress noted. Pt denies any pain at this time. AOx4; able to make needs known. No IV site noted; Dr. alfredoaycesar and aware. No erythema, bleeding, or infiltration noted. Left knee dressing dry and intact. Walker at bedside. Bed at lowest position. Brakes on. Siderails up x2. Call light within reach. Will continue to monitor.
--- NOTE | 2019-12-21 19:17 | NUR ---
HAND-OFF: Report given to Jackelyn RIZO, rounds made. Endorsed POC. Patient in stable condition.
[2019-12-21 20:00] VITALS: BP 130/66
[2019-12-21] MEDS: Dronabinol 2.5mg Cap ORAL SCH (20:07)
[2019-12-21] MEDS: HYDROmorphone 1mg/ml Carpuject SUBQ PRN (21:59)
[2019-12-22] VITALS: BP 129/66
[2019-12-22] MEDS: HYDROmorphone 1mg/ml Carpuject SUBQ PRN ×6 (00:55→21:30)
[2019-12-22 04:00] VITALS: BP 133/67
[2019-12-22 06:08] LABS: BASOPHILS % (AUTO) 0.8 % (0.0-2.0); EOSINOPHILS % (AUTO) 0.4 % (0.0-3.0); HEMATOCRIT 25.5 % (37.0-47.0); HEMOGLOBIN 8.8 G/DL (12.0-16.0); LYMPHOCYTES % (AUTO) 9.5 % (20.0-45.0); MEAN CORPUSCULAR VOLUME 92 FL (80-99); MONOCYTES % (AUTO) 10.7 % (1.0-10.0); NEUTROPHILS % (AUTO) 78.6 % (45.0-75.0); PLATELET COUNT 157 K/UL (150-450); RED BLOOD COUNT 2.77 M/UL (4.20-5.40); RED CELL DISTRIBUTION WIDTH 11.2 % (11.6-14.8); WHITE BLOOD COUNT 8.9 K/UL (4.8-10.8)
[2019-12-22 06:48] LABS: INR 0.9 (0.9-1.1)
--- NOTE | 2019-12-22 07:08 | NUR ---
NURSE NOTES: Dr. Gonzalez made aware of pt's hgb from this am lab. No new orders given. education teacher made aware as well.
--- NOTE | 2019-12-22 07:30 | NUR ---
NURSE NOTES: Patient is in bed awake and able to verbalize needs. Patient complains of 7/10 pain, pain medication administration schedule discussed with patient, patient verbalized understanding. Patient is in bed in locked and lowest position with call light within reach. All safety measures provided at this time. Will continue to monitor.
--- NOTE | 2019-12-22 07:49 | NUR ---
HAND-OFF: Report given to SALLIE Galaviz. Pt is awake and in stable condition. Plan of care endorsed.
[2019-12-22 08:00] VITALS: BP 132/58
[2019-12-22] MEDS: Docusate 100mg cap ORAL SCH ×2 (08:30→18:25)
[2019-12-22] MEDS: oxyCODONE 5mg IR tab ORAL PRN ×2 (08:31→12:49)
[2019-12-22] MEDS: Milk of Magnesia 30ml Ud ORAL PRN (08:31)
[2019-12-22] MEDS: Enoxaparin 40mg Inj SUBQ SCH (08:34)
--- NOTE | 2019-12-22 09:15 | NUR ---
NURSE NOTES: Patient had bm x2. States she feels better after having bowel movements.
[2019-12-22 12:00] VITALS: BP 106/60
--- NOTE | 2019-12-22 13:13 | NUR ---
NURSE NOTES: Patient is in good spirits. CPM on, tolerating well. Pain medication offered throughout shift.
[2019-12-22 15:51] VITALS: BP 105/60
--- NOTE | 2019-12-22 19:25 | NUR ---
NURSE NOTES: Received report from SALLIE Galaviz. Pt is awake, lying semi-corral's; comfortably resting. No signs of acute distress noted. Pt denies any pain at this time. and visiting friend at bedside. AOx4; able to make needs known. No IV site noted. No erythema, bleeding, or infiltration. Left leg dressing dry and intact. Bed at lowest position. Brakes on. Siderails up x2. Call light within reach. Will continue to monitor.
--- NOTE | 2019-12-22 19:46 | NUR ---
HAND-OFF: Report given to Jackelyn RIZO. Patient is stable.
[2019-12-22 20:00] VITALS: BP 118/85
[2019-12-22] MEDS: Dronabinol 2.5mg Cap ORAL SCH (20:14)
--- NOTE | 2019-12-22 21:40 | NUR ---
NURSE NOTES: Rounded with Dr. Gonzalez. specifically asked to have SCDs on both legs and only put rolled towel under the ankle of the left swollen legs. MD also ordered new medication orders. Orders read back, noted, and carried out. Please see orders for details.
--- NOTE | 2019-12-22 21:40 | General Progress Note ---
Assessment/Plan Status Narrative s/p TKR ptot doing well no DVT doing well monitorin cbc preliminary du=ouplex no DVT. Assessment/Plan: PT Ot paincontrol DVT prophyalxis venoud douplex both leg Subjective Date patient seen: Dec 22, 2019 Time patient seen: 21:38 Allergies: Coded Allergies: MORPHINE (Verified Allergy, Severe, rash; severe nausea and vomiting, 12/18) NSAIDS (NON-STEROIDAL ANTI-INFLAMMA (Verified Allergy, Severe, anaphylactic reaction, 12/18/19) had taken alleve; motrin in the past PENICILLINS (Verified Allergy, Severe, anaphylactic reaction, 12/18/19) CODEINE (Verified Allergy, Intermediate, rash; vomiting, 12/18/19) Subjective doign well no fever no chills no headache Objective Last 24 Hour Vital Signs Date Time Temp Pulse Resp B/P (MAP) Pulse Ox O2 Delivery O2 Flow Rate FiO2 12/22/19 15:51 98.5 85 18 105/60 (75) 97 12/22/19 12:00 98.6 89 18 106/60 (75) 96 12/22/19 09:00 Room Air 12/22/19 08:00 98.2 102 18 132/58 (82) 95 12/22/19 06:45 95 Room Air 21 12/22/19 04:00 97.8 96 17 133/67 (89) 92 12/22/19 00:00 98.3 98 20 129/66 (87) 93 Laboratory Tests 12/22/19 05:15: White Blood Count 8.9, Red Blood Count 2.77L, Hemoglobin 8.8L, Hematocrit 25.5L , Mean Corpuscular Volume 92, Mean Corpuscular Hemoglobin 31.8H, Mean Corpuscular Hemoglobin Concent 34.5, Red Cell Distribution Width 11.2L, Platelet Count 157, Mean Platelet Volume 7.9, Neutrophils (%) (Auto) 78.6H, Lymphocytes (%) (Auto) 9.5L, Monocytes (%) (Auto) 10.7H, Eosinophils (%) (Auto) 0.4, Basophils (%) (Auto) 0.8, Prothrombin Time 10.0, Prothromb Time International Ratio 0.9 Height (Feet): 5 Height (Inches): 4.00 Weight (Pounds): 155 General Appearance: WD/WN Neck: non-tender, supple Cardiovascular: normal rate, regular rhythm, no gallop/murmur Respiratory/Chest: lungs clear Abdomen: non tender, soft Edema: other - left leg hsa edema MIPS Medication Reconciliation 130 Medication Reconciliation trial ofdilaudid po abnd follow David Gonzalez MD Dec 22, 2019 21:40
[2019-12-23] VITALS: BP 101/59
[2019-12-23] MEDS ORDERED: HYDROmorphone 4mg tab ORAL PRN
[2019-12-23] MEDS: HYDROmorphone 2mg tab ORAL PRN ×4 (00:49→20:06)
[2019-12-23 04:00] VITALS: BP 125/65
[2019-12-23 07:20] LABS: BASOPHILS % (AUTO) 1.2 % (0.0-2.0); EOSINOPHILS % (AUTO) 2.7 % (0.0-3.0); HEMATOCRIT 24.3 % (37.0-47.0); HEMOGLOBIN 8.3 G/DL (12.0-16.0); LYMPHOCYTES % (AUTO) 25.9 % (20.0-45.0); MEAN CORPUSCULAR VOLUME 91 FL (80-99); MONOCYTES % (AUTO) 11.3 % (1.0-10.0); PLATELET COUNT 171 K/UL (150-450); RED BLOOD COUNT 2.66 M/UL (4.20-5.40); RED CELL DISTRIBUTION WIDTH 10.9 % (11.6-14.8); WHITE BLOOD COUNT 6.1 K/UL (4.8-10.8)
[2019-12-23 07:21] LABS: INR 0.9 (0.9-1.1)
--- NOTE | 2019-12-23 07:51 | NUR ---
HAND-OFF: Report given to SALLIE Galaviz. Pt is sleeping and in stable condition. Plan of care endorsed.
--- NOTE | 2019-12-23 07:51 | NUR ---
NURSE NOTES: Patient is in bed asleep. Breathing is even and unlabored. Stable. No visible signs of distress noted at this time. Patient is in bed in locked and lowest position with call light within reach. All safety measures provided. Will continue to monitor.
[2019-12-23 08:00] VITALS: BP 132/58
[2019-12-23] MEDS: Docusate 100mg cap ORAL SCH ×2 (09:14→17:59)
[2019-12-23] MEDS: Enoxaparin 40mg Inj SUBQ SCH (09:19)
[2019-12-23] MEDS: oxyCODONE 5mg IR tab ORAL PRN ×2 (11:36→17:59)
[2019-12-23 12:00] VITALS: BP 95/65
[2019-12-23] MEDS ORDERED: HYDROmorphone 2mg tab ORAL PRN (12:15)
--- NOTE | 2019-12-23 14:00 | NUR ---
NURSE NOTES: RN offered to assist patient to shower. Patient refused and wants to shower tomorrow.
[2019-12-23 16:00] VITALS: BP 123/86
--- NOTE | 2019-12-23 16:00 | NUR ---
NURSE NOTES: Dressing changed as ordered. Tolerated well.
[2019-12-23] MEDS: Milk of Magnesia 30ml Ud ORAL PRN (18:03)
--- NOTE | 2019-12-23 19:07 | General Progress Note ---
Assessment/Plan Assessment/Plan: s/p tkr perioperative blood loss postoperative anemia leg edema no dvt DAY HOSE STOCKING SCD LOVENOX PT OT CPM DVT PROPHYALXIS. Subjective Date patient seen: Dec 23, 2019 Time patient seen: 19:04 Constitutional: Reports: no symptoms HEENT: Reports: no symptoms Cardiovascular: Reports: no symptoms Allergies: Coded Allergies: MORPHINE (Verified Allergy, Severe, rash; severe nausea and vomiting, 12/18) NSAIDS (NON-STEROIDAL ANTI-INFLAMMA (Verified Allergy, Severe, anaphylactic reaction, 12/18/19) had taken alleve; motrin in the past PENICILLINS (Verified Allergy, Severe, anaphylactic reaction, 12/18/19) CODEINE (Verified Allergy, Intermediate, rash; vomiting, 12/18/19) Subjective doing ok not dizzy but weak her hgb has dropped to 8.3 Objective Last 24 Hour Vital Signs Date Time Temp Pulse Resp B/P (MAP) Pulse Ox O2 Delivery O2 Flow Rate FiO2 12/23/19 16:00 98.0 73 20 123/86 (98) 98 12/23/19 12:00 98.4 74 18 95/65 (75) 98 12/23/19 09:00 Room Air 12/23/19 08:00 98.2 102 18 132/58 (82) 95 12/23/19 04:00 97.9 74 20 125/65 (85) 98 12/23/19 00:00 98.0 73 20 101/59 (73) 96 12/22/19 21:00 Room Air 12/22/19 20:00 98.3 86 16 118/85 (96) 93 Laboratory Tests 12/23/19 05:00: White Blood Count 6.1, Red Blood Count 2.66L, Hemoglobin 8.3L, Hematocrit 24.3L , Mean Corpuscular Volume 91, Mean Corpuscular Hemoglobin 31.4H, Mean Corpuscular Hemoglobin Concent 34.4, Red Cell Distribution Width 10.9L, Platelet Count 171, Mean Platelet Volume 7.6, Neutrophils (%) (Auto) 59.0, Lymphocytes (%) (Auto) 25.9, Monocytes (%) (Auto) 11.3H, Eosinophils (%) (Auto) 2.7, Basophils (%) (Auto) 1.2, Prothrombin Time 9.2L, Prothromb Time International Ratio 0.9 Height (Feet): 5 Height (Inches): 4.00 Weight (Pounds): 155 General Appearance: WD/WN Neck: supple Cardiovascular: normal rate, regular rhythm, no JVD Respiratory/Chest: lungs clear Extremities: other - left leg swollen David Gonzalez MD Dec 23, 2019 19:06
--- NOTE | 2019-12-23 19:30 | NUR ---
HAND-OFF: Report given to Amanda RIZO. Patient is stable.
[2019-12-23 20:00] VITALS: BP 106/53
--- NOTE | 2019-12-23 20:00 | NUR ---
NURSE NOTES: Received patient awake in bed, able to make needs known, c/o 7/10 pain. Breathing is even and unlabored. Stable. No visible signs of distress noted at this time. Helped patient put on DAY hose as ordered by MD. Patient is in bed in locked and lowest position with call light within reach. All safety measures provided. Will continue to monitor.
[2019-12-23] MEDS: Dronabinol 2.5mg Cap ORAL SCH (21:10)
[2019-12-24] MEDS: HYDROmorphone 2mg tab ORAL PRN ×2 (01:04→05:37)
[2019-12-24 04:00] VITALS: BP 115/59
[2019-12-24 08:00] VITALS: BP 127/74
[2019-12-24] MEDS ORDERED: oxyCODONE 15mg IR tab ORAL SCH (08:00)
[2019-12-24] MEDS: Docusate 100mg cap ORAL SCH ×2 (08:28→18:24)
[2019-12-24] MEDS: Enoxaparin 40mg Inj SUBQ SCH (08:31)
[2019-12-24 08:53] LABS: BASOPHILS % (AUTO) 1.8 % (0.0-2.0); EOSINOPHILS % (AUTO) 3.1 % (0.0-3.0); HEMOGLOBIN 8.5 G/DL (12.0-16.0); LYMPHOCYTES % (AUTO) 25.1 % (20.0-45.0); MEAN CORPUSCULAR VOLUME 91 FL (80-99); MONOCYTES % (AUTO) 8.8 % (1.0-10.0); NEUTROPHILS % (AUTO) 61.1 % (45.0-75.0); PLATELET COUNT 233 K/UL (150-450); RED BLOOD COUNT 2.75 M/UL (4.20-5.40); RED CELL DISTRIBUTION WIDTH 11.4 % (11.6-14.8); WHITE BLOOD COUNT 6.6 K/UL (4.8-10.8)
[2019-12-24 12:00] VITALS: BP 116/69
[2019-12-24] MEDS: Milk of Magnesia 30ml Ud ORAL PRN (12:31)
[2019-12-24] MEDS: oxyCODONE 5mg IR tab ORAL PRN ×3 (14:01→20:17)
[2019-12-24 16:00] VITALS: BP 103/54
--- NOTE | 2019-12-24 16:36 | NUR ---
CASE MANAGEMENT:INITIAL REVIEW 12/22/19 SI;S/P LEFT TOTAL KNEE REPLACEMENT 98.2 102 18 132/58 95% ON RA H/H 8.8/25.5 IS;MARINOL PO QHS LOVENOX SQ QD DILAUDID SQ Q3HR/PRN FEOSOL PO TID \: 3E MED SURG UNIT DCP: HOME WHEN STABLE CASE MANAGEMENT:REVIEW 12/23/19 SI;S/P LEFT TOTAL KNEE REPLACEMENT 98.2 102 132/58 95% ON RA H/H 8.3/24.3 IS;MARINOL PO QHS LOVENOX SQ QD DILAUDID SQ Q3HR/PRN FEOSOL PO TID \: 3E MED SURG UNIT DCP: HOME WHEN STABLE CASE MANAGEMENT:INITIAL REVIEW 12/24/19 SI;S/P LEFT TOTAL KNEE REPLACEMENT 97.4 77 18 116/69 98% ON RA H/H 8.5/25.0 IS;MARINOL PO QHS LOVENOX SQ QD DILAUDID SQ Q3HR/PRN FEOSOL PO TID \: 3E MED SURG UNIT DCP: HOME WHEN STABLE PLAN: PATIENT LEGS STILL SWOLLEN
--- NOTE | 2019-12-24 16:41 | NUR ---
*-* INSURANCE *-* ALL CLINICALS AND REVIEWS HAVE BEEN FAXED TO; [employer] F: [phone] MARY:NONA REF# [id number] P: [phone] X. [phone] F: [phone]
--- NOTE | 2019-12-24 19:32 | NUR ---
HAND-OFF: Report given to Beulah RIZO. Patient is stable.
--- NOTE | 2019-12-24 19:47 | NUR ---
nurse's notes: received patient awake, alert and oriented x 4; able to walk to the bathroom with a FWW; WBAT; c/o 9/10 sharp pain that radiates to her thighs and foot; however, denies numbness and tingling; good CSM; unable t tolerate CPM; plan of care discussed with patient who verbalized understanding and agreement.
[2019-12-24 20:00] VITALS: BP 101/55
[2019-12-24] MEDS ORDERED: Milk of Magnesia 30ml Ud ORAL SCH (20:45)
[2019-12-24] MEDS: Dronabinol 2.5mg Cap ORAL SCH (21:10)
--- NOTE | 2019-12-24 21:58 | General Progress Note ---
Assessment/Plan Status Narrative s/p tkr left leg edema periooperative blood loss anemia Assessment/Plan: cbc is stable follow labs monitor hgb ========= left leg swolen and pain repeat a venous douplex per ortho the douplex was held ========= PT OT monitor closley wear leon hose stocking penumatic ocompresion stocking. Subjective Date patient seen: Dec 24, 2019 Time patient seen: 21:55 Allergies: Coded Allergies: MORPHINE (Verified Allergy, Severe, rash; severe nausea and vomiting, 12/18) NSAIDS (NON-STEROIDAL ANTI-INFLAMMA (Verified Allergy, Severe, anaphylactic reaction, 12/18/19) had taken alleve; motrin in the past PENICILLINS (Verified Allergy, Severe, anaphylactic reaction, 12/18/19) CODEINE (Verified Allergy, Intermediate, rash; vomiting, 12/18/19) Subjective leg is swollen sanchez sbelow knee pain no feverno chills Objective Last 24 Hour Vital Signs Date Time Temp Pulse Resp B/P (MAP) Pulse Ox O2 Delivery O2 Flow Rate FiO2 12/24/19 16:00 98.0 69 20 103/54 (70) 95 12/24/19 12:00 97.4 77 18 116/69 (85) 98 12/24/19 09:00 Room Air 12/24/19 08:00 98.9 93 18 127/74 (91) 99 12/24/19 06:07 97.9 12/24/19 04:00 97.9 82 19 115/59 (77) 98 12/23/19 22:11 Room Air Laboratory Tests 12/24/19 08:30: White Blood Count 6.6, Red Blood Count 2.75L, Hemoglobin 8.5L, Hematocrit 25.0L , Mean Corpuscular Volume 91, Mean Corpuscular Hemoglobin 30.8, Mean Corpuscular Hemoglobin Concent 33.9, Red Cell Distribution Width 11.4L, Platelet Count 233, Mean Platelet Volume 6.8, Neutrophils (%) (Auto) 61.1, Lymphocytes (%) (Auto) 25.1, Monocytes (%) (Auto) 8.8, Eosinophils (%) (Auto) 3.1H, Basophils (%) (Auto) 1.8 Height (Feet): 5 Height (Inches): 4.00 Weight (Pounds): 155 Neck: normal alignment, supple Cardiovascular: regular rhythm, no JVD Respiratory/Chest: lungs clear Abdomen: soft Extremities: other - left leg is moderately swollen David Gonzalez MD Dec 24, 2019 21:58
[2019-12-25] VITALS: BP 126/65
--- NOTE | 2019-12-25 00:14 | NUR ---
nurse's notes: venous doppler of BLE completed; negative for DVT; Dr. Gonzalez informed by Pascual, brim ironer hand; dressing on left knee redone; placed rolled towel under left knee; ice packs on affected leg; awaiting DAY tea from [employer]; patient c/o of itching on the back and head; no redness, hives or rash noted except for some dispersed "bumps" on the back; benadryl given; c/o pain but refused offer for pain medication. will continue to monitor.
[2019-12-25] MEDS: oxyCODONE 5mg IR tab ORAL PRN ×3 (01:57→11:51)
--- NOTE | 2019-12-25 03:22 | NUR ---
nurse's notes: patient unable to tolerate thigh high DAY hose but is agreeable to SCDs; initiated.
[2019-12-25 04:00] VITALS: BP 104/57
--- NOTE | 2019-12-25 06:52 | NUR ---
nurse's notes: no falls, injuries or trauma reported; pain managed well with ordered medication with good results; SCDs on; dressing over left knee remains CDI; ice packs over surgical site; no other complaints received.
--- NOTE | 2019-12-25 07:30 | NUR ---
NURSE NOTES: WALKING ROUNDS DONE WITH NIGHT RN. PATIENT AWAKE IN BED.QUESTIONS ANSWERED, NEEDS MET AT THIS TIME.DISCUSSED PLAN OF CARE FOR THE DAY. VERBALIZED UNDERSTANDING.LEFT KNEE DRSG C/D/I. NOTED LLE EDEMA PRESENT IN COMPARISON TO RLE. DENIES PAIN AT THIS TIME. BED IN LOW AND LOCKED POSITION.CALL LIGHT WITHIN REACH.
[2019-12-25 08:00] VITALS: BP 114/69
[2019-12-25] MEDS: Docusate 100mg cap ORAL SCH (08:48)
[2019-12-25] MEDS: Milk of Magnesia 30ml Ud ORAL PRN (08:50)
[2019-12-25 10:29] LABS: BASOPHILS % (AUTO) 1.7 % (0.0-2.0); EOSINOPHILS % (AUTO) 3.2 % (0.0-3.0); HEMATOCRIT 25.7 % (37.0-47.0); HEMOGLOBIN 8.8 G/DL (12.0-16.0); LYMPHOCYTES % (AUTO) 26.6 % (20.0-45.0); MEAN CORPUSCULAR VOLUME 90 FL (80-99); MONOCYTES % (AUTO) 7.9 % (1.0-10.0); NEUTROPHILS % (AUTO) 60.6 % (45.0-75.0); PLATELET COUNT 278 K/UL (150-450); RED BLOOD COUNT 2.85 M/UL (4.20-5.40); RED CELL DISTRIBUTION WIDTH 12.9 % (11.6-14.8); WHITE BLOOD COUNT 6.5 K/UL (4.8-10.8)
[2019-12-25 12:00] VITALS: BP 129/79
--- NOTE | 2019-12-25 12:00 | NUR ---
NURSE NOTES: DISCHARGE ORDER RECEIVED FROM DR. MALIK. TO CALL IN PRESCRIPTIONS TO PATIENT'S [facility]. INFORMATION PROVIDED TO MD. ORDER RECEIVED FOR HOME HEALTH/[facility] P.T./ CPM FOR HOME. ORDER PLACED. WILL F/U WITH CM. PATIENT INFORMED.
--- NOTE | 2019-12-25 13:00 | NUR ---
NURSE NOTES: DISCHARGE INSTRUCTIONS REVIEWED WITH PATIENT AND PATIENT EDUCATION. HOME HEALTH, HOME P.T. AND CPM TO BE ARRANGED VIA CASE MANAGEMENT.PATIENT INFORMED. VERBALIZED UNDERSTANDING. ALL BELONGINGS WITH SPOUSE. WILL F/U WITH DR. JEFFERSON DISCUSSED.PATIENT TRANSPORTED BY TO [facility].
--- NOTE | 2019-12-25 13:20 | NUR ---
NURSE NOTES: RECEIVED CALL FROM [facility] CONCERNING HOME CPM. WILL NEED TO CONTACT DR. JEFFERSON OFFICE TO CHECK OF A VENDOR USED BY HIM TO PROVIDE CPM FOR HOME.
--- NOTE | 2019-12-25 14:10 | NUR ---
NURSE NOTES: PLACED SECOND CALL TO DR. JEFFERSON OFFICE TO F/U WITH POSSIBLE CPM FOR HOME. AWAITING RETURN CALL. WILL CALL AGAIN.
--- NOTE | 2019-12-25 15:50 | NUR ---
NURSE NOTES: PLACED CALL AGAIN TO DR. JEFFERSON OFFICE AND SPOKE WITH QI. CPM TO BE DELIVERED BY [facility] BETWEEN TONIGHT OR TOMORROW. [phone]. DR. JEFFERSON OFFICE TO CONTACT PATIENT ABOUT DELIVERY.
--- NOTE | 2019-12-26 17:22 | Discharge Summary ---
Discharge Summary Hospital Course Date of Admission Dec 19, 2019 at 14:50 Date of Discharge Dec 25, 2019 at 13:20 Admitting Diagnosis Reason for Hospitalization: elective surgery HPI Anupama Shepherd is a 59 year old female who was admitted on Dec 19, 2019 at 14: 50 for Left Knee Osteoarthritis Procedures s/p 12/19/[address] Papito Walton left total knee arthroplasty Hospital Course Status post surgery course of recovery uneventful initially IV fluids s/p perioperative antibiotics neurovascular status closely monitored, remained stable incision with dressing : clean, dry, and intact LLE with edema Venous Duplex 12/21 and 12/24 no acute DVt pain management wasc addressed pain specialist followed; pain was controlled remained hemodynamically stable ambulated with PT fall precautions maintained; safe for ambulation DVT prophylaxis provided with SCD use of incentive spirometry was encouraged while in the bed tolerated diet , IV fluids discontinued GI prophylaxis provided antiemetics were on board as needed hemoglobin and hematocrit were closely monitored with goal to keep hemoglobin above 7 prior to discharge hemoglobin 8.8 , hematocrit 25.7 voided freely bowel regimen instituted patient was stable for discharge discharge instructions provided follow up with surgeon in the office as advised FINAL DIAGNOSES left knee osteoarthritis s/p left total knee arthroplasty anemia left lower extremity edema Discharge Medications Continued Medications: Multivitamin With Minerals (Multivitamins With Minerals*) 1 Each Tablet 1 TAB ORAL DAILY for supplement , TAB (This prescription has been renewed) Discharge Condition Upon Discharge: stable Discharge Vital Signs Last Vital Signs Date Time Temp Pulse Resp B/P (MAP) Pulse Ox O2 Delivery O2 Flow Rate FiO2 12/25/19 12:00 97.9 76 21 129/79 (96) 99 12/25/19 09:00 Room Air 12/22/19 06:45 21 12/19/19 14:45 3 Discharge Disposition Patient was discharged home with [facility] Discharge Instructions Discharge Instructions Special Instructions I have been assigned to complete a D/C Summary on this account. I was not involved in the patient management Kay Germain NP Dec 26, 2019 17:22
--- NOTE | 2019-12-27 09:52 | NUR ---
DISCHARGE PLANNING: INSURANCE PROVIDED A LIST OF CONTRACTED HOME HEALTH IN AREA ALL HOME HEALTH IN AREA UNABLE OR TOO FAR TO SEE PATIENT MADE PATIENT AWARE PATIENT IS IN CONTACT WITH MD DR. KING URBINA VEHICLE CARE SPECIALIST VIET AWARE OF BARRIERS: T: [phone]
--- NOTE | 2019-12-27 14:54 | NUR ---
*-* INSURANCE *-* ALL CLINICALS AND REVIEWS HAVE BEEN FAXED TO; MAIKEL F: [phone] MARY:NONA REF# [id number] P: [phone] X. [phone] F: [phone]
--- NOTE | 2019-12-27 15:18 | NUR ---
discharge planned patient accepted to [facility] [phone] patient made aware patient insurance made aware
--- NOTE | 2019-12-28 14:04 | NUR ---
*-* INSURANCE *-* DISCHARGE SUMMARY HAS BEEN FAXED: MAIKEL F: [phone] JAHM:NONA REF# [id number] P: [phone] X. [phone] F: [phone]
--- NOTE | 2019-12-31 07:30 | Operative Note - Dictated ---
DATE OF OPERATION: 12/19/2019 PREOPERATIVE DIAGNOSIS: Left end-stage osteoarthritis of the knee. POSTOPERATIVE DIAGNOSIS: Left end-stage osteoarthritis of the knee. SURGEON: Papito Walton M.D. IT ARCHITECTURE ANALYST: Dr. Mcintyre. PROFESSOR OF SPORT MANAGEMENT: None. PROCEDURES: Left total knee replacement . PREOPERATIVE NOTE: This is a pleasant lady who has been having issues with her knee associated pain, failed conservative treatment, had x-ray findings. I explained to her the surgery and the risks being infection, bleeding, anesthetic risks, neurovascular damage, DVT, PE, and failure of the operation. The patient agreed. Consents were obtained. OR NOTE: Under the benefit of endotracheal intubation, general anesthetic and block, the patient's leg was prepped and draped in appropriate manner. Clindamycin was given. A midline incision was made and carried through subcutaneous tissue. No tourniquet was used the medial retinaculum and proximal femur 7-degree valgus. Sizing this to be a size 7 femur, then made anterior cuts, posterior cuts, and anterior chamfer and posterior chamfer cuts. Proximal tibia cut was made with respect to the mechanical . A built-in 7-degree slope was . I made the tibial plateau cut. Used spacer blocks to certified driver examiner the flexion and extension gaps. Tendons seemed to be at perfect alignment. Medial and lateral stability throughout all ranges with full extension. tibia as well. cemented tibial component, femoral component . The patella was denervated. There were minimal to no changes and irrigated the wound copiously. EBL was approximately 300 mL. The tourniquet was used. We had full stability and full range of motion. I closed the retinaculum with #1 Vicryl, subcutaneous tissue with 2-0 Vicryl, and skin with javan. Compression dressing . There were no complications. Papito Walton M.D. DR: MARU JOB#: [id number] CC:
== END 2019-12-25 13:20 | disposition home health service (06) | DRG 470 ==
LOC: SUR 09:26 → 3E 14:50 → UNDOADMIN 12-20 07:30 → UNDODISIN 12-25 13:20
PROC: 0SRD0JZ Replacement of Left Knee Joint with Synthetic Substitute, Open Approach (ICD-10-PCS; principal; 2019-12-19 10:00)
DX: M17.12 Unilateral primary osteoarthritis, left knee (principal); G89.18 Other acute postprocedural pain; Z72.0 Tobacco use; D50.0 Iron deficiency anemia secondary to blood loss (chronic); R60.9 Edema, unspecified
CPT/HCPCS: 36415; 80048; 85025; 85610; 86850; 86900; 86901; 87081; 93970; 94003; 94150; J2405; S0077